=== PATIENT | female | born 1955 | race Caucasian/White ===

== ENCOUNTER 2017-05-21 12:19 | Emergency (ER) | payer OTHER ==
[~2017-05-21] VITALS: Ht 160 cm; Wt 97.6 kg
[~2017-05-21 12:19] MED LIST: LORA-741 PO; LOSA50TA6 PO; LYR/50 PO; OXYC-292 PO; OXYC-643 PO; XRL10 PO
[2017-05-21 12:28] VITALS: TEMP 36.7; Ht 160 cm; Wt 97.6 kg
--- NOTE | 2017-05-21 13:58 | EMERGENCY ROOM VISIT NOTE ---
History First contact with patient: 13:31 Chief Complaint: CONSTIPATION Stated Complaint: CONSTIPATION Nursing Triage Summary: pt c/o constipation for 2 months. pt states she has had small amount of stool today after a self enema this AM. pt states she has been taking miralax and mag citrate and lactulose per PCP order with no relief. History of Present Illness The patient is a 62 year old female who presents to the Emergency Room with complaints of a 1 month history of constipation. The patient has a past medical history of hypertension and arthritis and occasionally becomes constipated that is relieved with enemas. The patient was seen by her PCP on 05/02 and was started on a 1 week trial of Miralax and had no subsequent bowel movements. On she was then given a 2 day course of Mag Citrate and describes having only 1 watery bowel movement and afterwards no changes. On 05/16 she was started on lactulose 15ml BID and since has had no bowel movements. She denies any use of narcotics and only takes her prescribed medications. She denies any recent travel, illness, exposures, diet changes, or possible triggers. Her last colonoscopy was in November 2015 and was found to have diverticulosis. She denies any nausea, vomiting, abdominal tenderness, fever, chills, or any other acute symptoms other than constipation. She does have chronic external hemorrhoids. Review of Systems See HPI for pertinent positives and negatives. A total of ten systems were reviewed and were otherwise negative. Social History Smoking Status: Never Smoker Current/Historical Medications Scheduled Lorazepam (Ativan), 0.5 MG PO HS Losartan Potassium (Cozaar), 50 MG PO DAILY Meloxicam (Meloxicam), 15 MG PO DAILY Allergies Coded Allergies: Penicillins (Verified Allergy, Unknown, 05/21/17) Physical Exam Vital Signs Date Time Temp Pulse Resp B/P (MAP) Pulse Ox O2 Delivery O2 Flow Rate FiO2 05/21/17 16:48 74 16 130/87 98 05/21/17 14:23 64 20 134/89 96 Room Air 05/21/17 12:28 36.7 81 18 146/93 95 Room Air Physical Exam GENERAL: Awake, alert, well-appearing, in no distress HENT: Normocephalic, atraumatic. Oropharynx unremarkable. EYES: Normal conjunctiva. Sclera non-icteric. NECK: Supple. No nuchal rigidity. FROM. No JVD. RESPIRATORY: Clear to auscultation. CARDIAC: Regular rate, normal rhythm. Extremities warm and well perfused. Pulses equal. ABDOMEN: Soft, nontender, nondistended. Mild tenderness in RUQ. RECTAL: Small amount of stool in rectal vault, Hemoccult negative, external hemorrhoids, no visible anal fissures MUSCULOSKELETAL: Chest examination reveals no tenderness. LOWER EXTREMITIES: Calves are equal size bilaterally and non-tender NEURO: Normal sensorium. No sensory or motor deficits noted. SKIN: No rash or jaundice noted. Medical Decision & Procedures Laboratory Results 05/21/17 14:15 Red Blood Count 4.67, Mean Corpuscular Volume 88.9, Mean Corpuscular Hemoglobin 29.3, Mean Corpuscular Hemoglobin Concent 33.0, Mean Platelet Volume 10.8, Neutrophils (%) (Auto) 56.7, Lymphocytes (%) (Auto) 34.1, Monocytes (%) (Auto) 6.1, Eosinophils (%) (Auto) 2.3, Basophils (%) (Auto) 0.6, Neutrophils # (Auto) 3.75, Lymphocytes # (Auto) 2.25, Monocytes # (Auto) 0.40, Eosinophils # (Auto) 0.15, Basophils # (Auto) 0.04 05/21/17 14:15 Test 05/21/17 14:15 White Blood Count 6.60 K/uL (4.8-10.8) Red Blood Count 4.67 M/uL (4.2-5.4) Hemoglobin 13.7 g/dL (12.0-16.0) Hematocrit 41.5 % (37-47) Mean Corpuscular Volume 88.9 fL (80-100) Mean Corpuscular Hemoglobin 29.3 pg (25-34) Mean Corpuscular Hemoglobin Concent 33.0 g/dl (32-36) Platelet Count 255 K/uL (130-400) Mean Platelet Volume 10.8 fL (7.4-10.4) Neutrophils (%) (Auto) 56.7 % Lymphocytes (%) (Auto) 34.1 % Monocytes (%) (Auto) 6.1 % Eosinophils (%) (Auto) 2.3 % Basophils (%) (Auto) 0.6 % Neutrophils # (Auto) 3.75 K/uL (1.4-6.5) Lymphocytes # (Auto) 2.25 K/uL (1.2-3.4) Monocytes # (Auto) 0.40 K/uL (0.11-0.59) Eosinophils # (Auto) 0.15 K/uL (0-0.5) Basophils # (Auto) 0.04 K/uL (0-0.2) RDW Standard Deviation 44.1 fL (36.4-46.3) RDW Coefficient of Variation 13.6 % (11.5-14.5) Immature Granulocyte % (Auto) 0.2 % Immature Granulocyte # (Auto) 0.01 K/uL (0.00-0.02) Anion Gap 5.0 mmol/L (3-11) Est Creatinine Clear Calc Drug Dose 84.3 ml/min Estimated GFR () 95.9 Estimated GFR (Non- 82.8 BUN/Creatinine Ratio 19.9 (10-20) Calcium Level 9.6 mg/dl (8.5-10.1) Total Bilirubin 0.3 mg/dl (0.2-1) Aspartate Amino Transf (AST/SGOT) 11 U/L (15-37) Alanine Aminotransferase (ALT/SGPT) 22 U/L (12-78) Alkaline Phosphatase 82 U/L (45-117) Total Protein 6.6 gm/dl (6.4-8.2) Albumin 3.6 gm/dl (3.4-5.0) Globulin 3.0 gm/dl (2.5-4.0) Albumin/Globulin Ratio 1.2 (0.9-2) Medical Decision Patient is a 62 year old female that presents with a 1 month history of constipation Etiologies such as diverticulitis, obstruction, inflammatory bowel disease, infections, as well as others were entertained. Initial orders include CT Abdomen and Pelvis, labs including CBC and BMP - CBC and BMP wnl - CT Abdomen and Pelvis reveals no acute abnormalities - Discussed with patient continuing Lactulose and following up with GI - Appointment moved to May 30 with GI in [place] Impression Primary Impression: Constipation Departure Information Dispostion Home / Self-Care Condition GOOD Referrals Carolynn Mike PA-C (PCP) Patient Instructions My [facility] Problem Qualifiers Primary Impression: Constipation Constipation type: unspecified constipation type Qualified Codes: K59.00 - Constipation, unspecified
[2017-05-21] MEDS ORDERED: OPTIRAY 320 IV PRN (14:00)
[2017-05-21] MEDS ORDERED: MELO15TA4 PO (14:22)
[2017-05-21 14:27] LABS: BASO % 0.6 %; BASO ABS # 0.04 K/uL (0-0.2); COMPLETE YES; EOS % 2.3 %; HEMATOCRIT 41.5 % (37-47); IG% 0.2 %; LYMPH % 34.1 %; LYMPH ABS # 2.25 K/uL (1.2-3.4); MEAN CELL VOLUME 88.9 fL (80-100); MEAN CORPUSCULAR HEMOGLOBIN 29.3 pg (25-34); MEAN PLATELET VOLUME 10.8 fL (7.4-10.4); MONO % 6.1 %; NEUT % 56.7 %; PLATELET COUNT 255 K/uL (130-400); RED BLOOD COUNT 4.67 M/uL (4.2-5.4)
[2017-05-21 14:52] LABS: BUN/CREATININE RATIO 19.9 (10-20); CALCIUM 9.6 mg/dl (8.5-10.1); CREATININE 0.77 mg/dl (0.60-1.20); POTASSIUM 4.1 mmol/L (3.5-5.1)
[2017-05-21 14:55] LABS: ALB/GLOB RATIO 1.2 (0.9-2)
--- NOTE | 2017-05-21 16:45 | DIAGNOSTIC IMAGING REPORT ---
CT OF THE ABDOMEN AND PELVIS WITH CONTRAST CLINICAL HISTORY: Abdominal pain. Constipation. COMPARISON STUDY: None. TECHNIQUE: Following IV administration of 119 mL of Optiray-320, axial images of the abdomen and pelvis were obtained from the lung bases to the proximal femurs. Images were reviewed in the axial, sagittal, and coronal planes. IV contrast was administered without complication. Oral contrast was administered. CT DOSE: 1014.70 mGy.cm FINDINGS: Lung bases are clear. Heart is mildly enlarged. There is fatty infiltration of liver with suspected fatty sparing within the medial segment. The spleen, adrenal glands and pancreas are normal. There are small bilateral renal calculi that measure up to 4 mm. There are no ureteral calculi. There are bilateral parapelvic cysts. There is left colon diverticulosis without evidence for acute diverticulitis. The appendix is normal. Caliber and wall thickness of small and large bowel are normal. No suspicious osseous lesions are present. Pelvic calcifications represent phleboliths. The uterus is not visualized. The amount of stool within the colon and rectum is within normal limits. IMPRESSION: 1. No acute process within the abdomen or pelvis. 2. Colonic diverticulosis without evidence of acute diverticulitis. 3. Bilateral nephrolithiasis. No ureteral calculi. Suspected bilateral parapelvic cysts. Hydronephrosis could appear similar but is considered less likely. Electronically signed by: Crow Felix M.D. 05/21/2017 4:43 PM Dictated Date/Time: 05/21/2017 4:38 PM
[2017-05-21 16:48] VITALS: BP 130/87; PULSE 74; O2SAT 98
--- NOTE | 2017-05-21 17:01 | EMERGENCY ROOM VISIT NOTE ---
ED Visit Note First contact with patient: 13:31 Patient seen and evaluated at bedside. Discussed with patient recent history and alteration of bowel movements. Discussed plan of evaluation and care with the resident. Reviewed labs and imaging. On my bedside exam patient's abdomen soft nontender, no rebound guarding, patient well-appearing and tolerating by mouth. No fevers or chills, no other changes to suggest occult infectious etiology. Doubt bacteremia/sepsis, doubt mesenteric ischemia. No evidence of hypertensive urgency/emergency. Doubt vascular aortic pathology. CAT scan reassuring and no acute process found. Discussed with patient close follow-up with family doctor as well as GI. The resident involved major case detective's to arrange earlier GI visit. Patient verbalized understanding of all results and was agreeable with plan. Discussed symptoms to watch and return for.
== END 2017-05-21 17:13 | disposition home or self-care (01) ==
LOC: C.EDB 12:21 → C.EDA 17:13
DX: K59.00 Constipation, unspecified (principal); I10 Essential (primary) hypertension; M19.90 Unspecified osteoarthritis, unspecified site; K57.90 Diverticulosis of intestine, part unspecified, without perforation or abscess without bleeding; K64.4 Residual hemorrhoidal skin tags

== ENCOUNTER 2019-01-31 08:27 | Inpatient (IN) ==
--- NOTE | 2019-01-06 10:24 | PAT Medication Instructions ---
Medication Instructions Date of Service January 06, 2019 Home Medications lorazepam 0.5 mg PO HS losartan 50 mg PO .NOON meloxicam 15 mg PO .NOON rosuvastatin 10 mg PO .NOON ASK your surgeon for instructions meloxicam 15 mg PO .NOON DO NOT take the morning of surgery losartan 50 mg PO .NOON Take morning of surgery With a small sip of water, OTHERWISE NOTHING TO EAT OR DRINK AFTER MIDNIGHT: rosuvastatin 10 mg PO .NOON Take evening before surgery lorazepam 0.5 mg PO HS Other Notes If you have any questions please call us at [phone] or [phone] or [phone] or [phone]
--- NOTE | 2019-01-06 12:31 | Anesthesiology Consultation ---
Date of Service January 06, 2019 Assessment & Plan (1) Encounter for pre-operative examination: Chart Review Chart Review: Acceptable Risk for Surgery and Patient seen in Pre Admission Testing Teaching & Discussion Pre-Anesthesia Teaching/Discussion Notes: Instructed NPO after midnight before surgery,except medications with 15 cc of water. Medication instructions provided according to the PAT guidelines. History Surgery Operation Date: 01/31/19 08:50 Proposed Procedures p Right Total Knee Replacement - Tyree Barnard MD Height/Weight Height: 5 ft 3 in Weight: 101.2 kg Allergies Allergy/AdvReac Type Severity Reaction Status Date / Time Penicillins Allergy Mild Rash Verified 12/31/18 12:02 Medications Home Medications Medication Instructions Recorded Confirmed Last Taken lorazepam 0.5 mg PO HS 12/31/18 12/31/18 Unknown losartan 50 mg PO .NOON 12/31/18 12/31/18 Unknown meloxicam 15 mg PO .NOON 12/31/18 12/31/18 Unknown rosuvastatin 10 mg PO .NOON 12/31/18 12/31/18 Unknown Past Medical History Medical History Hyperlipidemia Hypertension Kidney stones Obesity Osteoarthritis Past Surgical History Surgical History History of total abdominal hysterectomy and bilateral salpingo-oophorectomy History of total left knee replacement Hx of dilation and curettage Hx of lithotripsy Hx of tonsillectomy Past Anesthesia History No Family Hx of Anesthesia Complications and Other "Awareness" with previous TKA. History of PONV Yes Motion Sickness Screening History of Motion Sickness: No Social History Smoking Status: Never smoker Do You Dip or Chew Tobacco: No Hx Alcohol Use: Yes Alcohol type: wine alcohol intake frequency: holidays/special occasions only Hx Substance Use: No substance use type: does not use Exercise / Class Metabolic Activity II 4-5 Yardwork/Stairs/Walk up hill Review of Systems Patient denies chest pain, shortness of breath, dyspnea on exertion, reflux, cough, wheezing, palpitations. Physical Exam Vital Signs VITALS BP 130/86 P 70 TEMP 98.0 SP02 94%RA RESP 18 PHYSICAL Full neck and c-spine range of motion. Full TMJ range of motion. TMD 2.5 finger breaths Mallampati Score 3 Dentition: upper front left chipped tooth (to be "repaired" 12/2018- surgeon made aware) Lungs: clear throughout to auscultation Cardiac: regular rate and rhythm, no murmurs noted Spine: normal Carotid arteries: negative bruit Extremities: no edema Small chin* Testing Electrocardiogram Date: 12/13/18 Findings: + NSR @ (82) Other Testing Chest CT= 12/22/18= Lungs clear. Central airways clear. No pulmonary mass. Opacity noted on prior CXR felt 2/2 to prominent right sided anterolateral projecting osteophytes off thoracic spine. Laboratory Results 01/06/19 12:41 01/06/19 12:41 Blood Type A Positive 01/06/19 12:41 Antibody Screen NEGATIVE 01/06/19 12:41 PT 10.0 Seconds (9.0-12.0) 01/06/19 12:41 INR 1.0 (0.9-1.1) 01/06/19 12:41 APTT 25.2 Seconds (21.0-31.0) 01/06/19 12:41
[2019-01-06 13:22] LABS: Basophils # (auto) 0.03 K/uL (0-0.2); Basophils % (auto) 0.5 %; Eosinophils # (auto) 0.14 K/uL (0-0.5); Eosinophils % (auto) 2.3 %; Hematocrit (blood only) 40.8 % (37-47); Hemoglobin 13.4 g/dL (12.0-16.0); Immature Granulocytes # (auto) 0.01 K/uL (0.00-0.02); Immature Granulocytes % (auto) 0.2 %; Lymphocytes # (auto) 1.99 K/uL (1.2-3.4); Lymphocytes % (auto) 32.6 %; Mean Corpuscular Hgb Conc 32.8 g/dL (32-36); Mean Corpuscular Volume 90.1 fL (80-100); Mean Platelet Volume 11.4 fL (7.4-10.4); Monocytes # (auto) 0.31 K/uL (0.11-0.59); Monocytes % (auto) 5.1 %; Neutrophils # (auto) 3.62 K/uL (1.4-6.5); Neutrophils % (auto) 59.3 %; Platelet Count 242 K/uL (130-400); RDW Coefficient of Variation 14.4 % (11.5-14.5); RDW Standard Deviation 47.5 fL (36.4-46.3); Red Blood Count 4.53 M/uL (4.2-5.4)
[2019-01-06 13:39] LABS: BUN Creatinine Ratio 23.6 (10-20); Blood Urea Nitrogen 19 mg/dl (7-18); C Reactive Protein < 0.29 mg/dl (0-0.29); Calcium 8.9 mg/dl (8.5-10.1); Carbon Dioxide 28 mmol/L (21-32); Chloride 108 mmol/L (98-107); Creatinine Clr Calc Pharmacy 80.7 ml/min; Est GFR (African American) 89.6; Est GFR (Non-African American) 77.3; Glucose 90 mg/dl (70-99); Potassium 4.3 mmol/L (3.5-5.1); Sodium 140 mmol/L (136-145)
[2019-01-06 13:43] LABS: Partial Thromboplastin Time 25.2 Seconds (21.0-31.0)
--- NOTE | 2019-01-13 21:52 | History and Physical Report ---
DATE OF ADMISSION: CHIEF COMPLAINT: Right knee pain. HISTORY OF PRESENT ILLNESS: The patient is a 63-year-old female who is well known to me from seen for some knee problems in the past. She came to me for a second opinion before her previous left knee surgery done by Dr. Ramesh in 11/2012. She had gone over and had her knee replaced and has had done okay, but continued to have some persistent pain. Over the year, she developed increased pain and discomfort in her right knee. She describes global pain. The more she walks, the more it hurts. The patient has been through extensive conservative treatment including injections as well as medicines without adequate relief. This is affecting her quality of life. She has pain with every step. She has nighttime pain. She would like to proceed with surgery on this knee. PAST MEDICAL HISTORY: Significant for, 1. Hypertension. 2. Elevated cholesterol. 3. Arthritis. 4. Neck pain. 5. Obesity with BMI of 40. 6. Kidney stones. PAST SURGICAL HISTORY: Include, 1. Tonsillectomy. 2. Tubal ligation. 3. D and C. 4. Left knee replacement done in 11/[address] Ramesh. 5. Hysterectomy. 6. Kidney stones. ALLERGIES: PENICILLIN WHICH CAUSES A RASH. No respiratory problems. CURRENT MEDICINES: Include, 1. Ativan 0.5 mg. 2. Rosuvastatin 10 mg a day. 3. Meloxicam. 4. Losartan 50 mg a day. SOCIAL HISTORY: This patient is a 63-year-old female. She lives by herself. Does not smoke. FAMILY HISTORY: Noncontributory. REVIEW OF SYSTEMS: Negative for diabetes, neurologic problems, vascular problems or bleeding disorders. No chest pain or shortness of breath. No signs of deep venous thrombosis or pulmonary embolism. PHYSICAL EXAMINATION: GENERAL: Reveals a healthy pleasant 63-year-old female. HEENT: Benign. NECK: Supple. No lymphadenopathy. LUNGS: Clear to auscultation. HEART: Regular rate and rhythm. ABDOMEN: Soft, nontender and nondistended. EXTREMITIES: Grossly neurovascularly intact except as follows. Examination of the right knee reveals the patient ambulates independently. Slight varus alignment to her knee. Moderate soft tissue envelope. Small to moderate sized knee effusion. Range of motion about 10 degrees short of full extension and 110 degrees of flexion. There is no instability. No pain with hip motion. X-RAYS: X-rays of the right knee reviewed which showed advanced right knee tricompartment DJD. She has got complete loss of her medial joint space. She does have a loose body in the suprapatellar pouch. She has osteophytes in all 3 compartments. ASSESSMENT: This patient is a 63-year-old female with advanced right knee degenerative joint disease. She has failed conservative treatment and would like to have her right knee replaced. She did have a left knee replaced back in 2012 with a suboptimal result. She knows there is no guarantee, but she would like to proceed with knee replacement on the right side. PLAN: We are going to take her to the Operating Room and do a right total knee replacement. The risks and benefits of this procedure were explained to the patient including but not limited to deep venous thrombosis, pulmonary embolism, , infection, neurological injury, vascular injury, bleeding problem, pain, limited range of motion, stiffness, failure to relieve symptoms, incomplete relief of symptoms, need for further surgery in the future, need for blood transfusion, etc. The patient understands and desires to proceed. Informed consent was obtained. We did talk to her about stopping meloxicam 10 days preoperatively. We will plan to give her Ancef as her penicillin reaction is not a true anaphylactic reaction. She is hoping to be discharged to [facility] or group home facility as she lives by herself.
[~2019-01-31 08:27] MED LIST changes: +ACETAMINOPHEN 500 MG TAB PO SCH; +BUPIVACAINE 0.5 % 5 MG/1 ML PF 10ML VIAL ONE; +BUPIVACAINE LIPOSOME/PF 266 MG, BUPIVACAINE/EPINEPHRINE 50 ML, SODIUM CHLORIDE 0.9% 30 ... INFIL SCH; +CEFAZOLIN 2000MG 2,000 MG/15 ML SYR IV SCH; +EPINEPHrine INJ 1 MG/ML AMP ONE; +FAMOTIDINE 20 MG TAB PO SCH; +GABAPENTIN 300 MG x 2 PO SCH; -LORA-741 PO; -LOSA50TA6 PO; +LR 500ML BOLUS, THEN 15ML/HR IV SCH; +LR 60ML/HR IV SCH; -LYR/50 PO; +METOCLOPRAMIDE HCL 10 MG TABLET PO SCH; -OXYC-292 PO; -OXYC-643 PO; +ROPIVACAINE 0.5% 5 MG/ML 30 ML VIAL ONE; +SCOPOLAMINE 1.5 MG TDSY TD SCH; +TRANEXAMIC ACID 1,000 MG **IV Intra-op IV SCH; -XRL10 PO
--- NOTE | 2019-01-31 08:34 | History & Physical Bridge Note ---
Date of Service January 31, 2019 History & Physical Bridge Note I have examined the patient, reviewed the History & Physical and in the interval since the performance of the History & Physical I have noted the following changes of clinical significance: no changes noted
[2019-01-31] MEDS ORDERED: fentaNYL citrate 100 MCG/2 ML VIAL ONE (09:04)
[2019-01-31] MEDS ORDERED: MIDAZOLAM HCL 1 MG/ML 2ML VIAL ONE ×2 (09:04→11:13)
[2019-01-31] MEDS ORDERED: fentaNYL citrate 100 MCG/2 ML VIAL IV PRN (10:26)
[2019-01-31] MEDS ORDERED: HYDROmorphone INJ 1 MG/ML SYRINGE IV PRN (10:26)
[2019-01-31] MEDS ORDERED: LABETALOL HCL IV 5 MG/ML 20ML IV PRN (10:26)
[2019-01-31] MEDS ORDERED: ePHEDrine sulfate 50 MG/ML AMP IV PRN (10:26)
[2019-01-31] MEDS ORDERED: ATROPINE SULFATE 0.1 MG/ML 10ML SYR IV PRN (10:26)
[2019-01-31] MEDS ORDERED: ONDANSETRON INJ 2 MG/ML 2 ML VIAL IV PRN ×2 (10:26→15:12)
[2019-01-31] MEDS ORDERED: MEPERIDINE HCL 25 MG/ML CARP IV PRN (10:26)
[2019-01-31] MEDS ORDERED: PHENYLEPHRINE 100MCG/ML 5ML SYR IV PRN (10:26)
[2019-01-31] MEDS ORDERED: SODIUM CHLORIDE 0.9% PF 50 ML VIAL ONE (10:34)
[2019-01-31] MEDS ORDERED: BUPIVACAINE LIPOSOME 1.3% 266 MG/20 ML VIAL ONE (10:34)
[2019-01-31] MEDS ORDERED: BACITRACIN INJ 50,000 UNIT VIAL ONE (10:34)
[2019-01-31] MEDS ORDERED: EPINEPHrine INJ 1 MG/ML AMP ONE (10:35)
[2019-01-31] MEDS ORDERED: BUPIVACAINE 0.25% 30 ML VIAL ONE (10:35)
[2019-01-31] MEDS ORDERED: PROPOFOL IV EMULSION 10 MG/ML 20 ML VIAL IV ONE (11:23)
[2019-01-31] MEDS ORDERED: ONDANSETRON INJ 2 MG/ML 2 ML VIAL ONE (11:23)
[2019-01-31] MEDS ORDERED: LIDOCAINE HCL 2% 2 ML VIAL/AMP(20MG/ML) INFIL ONE (11:23)
[2019-01-31] MEDS ORDERED: PHENYLEPHRINE 100MCG/ML 5ML SYR ONE (11:23)
--- NOTE | 2019-01-31 12:34 | Post Operative Brief Note ---
Immediate Post Op Note v1 Date of Surgery January 31, 2019 Pre & Post Diagnosis Operation Date: 01/31/19 10:40 Pre-Op Diagnosis: Right Knee Advanced Degenerative Joint Disease Post-Op Diagnosis: Right Knee Advanced Degenerative Joint Disease Procedure Operation Date: 01/31/19 10:40 Actual Procedures p Right Total Knee Arthroplasty(Right) - Tyree Barnard MD Surgeon Tyree Barnard MD Senior Technical Manager Chela, PAC Estimated Blood Loss 50 Findings Consistent with Post-Op Diagnosis Fluids 1500 cc Specimens Right Knee Drains Early Catheter (16 Dominican early catheter inserte by JESSICA Soares, without difficulty, clear yellow urine obtained, output to be monitored by Anesthesia.) Anesthesia Type Spinal MAC Complications none Disposition Accompanied Patient To Recovery: No Disposition: Recovery Room
--- NOTE | 2019-01-31 13:30 | XRay Report ---
XR knee RT 2V routine CLINICAL HISTORY: 64 years-old Female presenting with Surgical Post Op. TECHNIQUE: Frontal and lateral views of the right knee were obtained. COMPARISON: 01/12/2019. FINDINGS: There has been interval total right knee arthroplasty with patellar resurfacing. Expected intra-artic ular and soft tissue emphysema. Overlying skin hoa. No malalignment or periprosthetic fracture. IMPRESSION: Expected postsurgical appearance status post total right knee arthroplasty with patellar resurfacing. Electronically signed by: Emile Ko M.D. 01/31/2019 1:28 PM
--- NOTE | 2019-01-31 14:14 | Anesthesiology Progress Note ---
Date of Service January 31, 2019 Anesthesia Post Procedure Vital Signs Vital Signs: Temp Pulse Pulse Pulse Resp BP BP 01/31/19 13:55 82 15 01/31/19 13:51 80 14 99/59 L 01/31/19 13:50 81 14 01/31/19 13:45 81 13 108/64 01/31/19 13:40 84 13 109/64 01/31/19 13:35 87 15 103/65 01/31/19 13:30 85 15 107/69 01/31/19 13:25 83 19 100/62 01/31/19 13:20 83 16 101/64 01/31/19 13:15 86 16 122/64 01/31/19 13:10 88 15 100/68 01/31/19 13:05 94 H 16 110/71 01/31/19 13:00 88 18 01/31/19 12:55 88 15 115/71 01/31/19 12:52 90 14 113/66 01/31/19 12:41 36.5 C 98 H 12 111/63 01/31/19 09:02 36.5 C 76 20 149/92 H Pulse Ox 01/31/19 13:55 94 01/31/19 13:51 96 01/31/19 13:50 93 01/31/19 13:45 91 01/31/19 13:40 94 01/31/19 13:35 90 01/31/19 13:30 92 01/31/19 13:25 94 01/31/19 13:20 93 01/31/19 13:15 89 L 01/31/19 13:10 90 01/31/19 13:05 92 01/31/19 13:00 96 01/31/19 12:55 95 01/31/19 12:52 94 01/31/19 12:41 99 01/31/19 09:02 93 Notes Mental Status: alert / awake / arousable Patient Amnestic to Procedure: Yes Nausea / Vomiting: adequately controlled Pain: adequately controlled Airway Patency, RR, SpO2: stable & adequate BP & HR: stable & adequate Hydration State: stable & adequate Neuraxial Anesthesia: was administered and sensory block is resolving Anesthetic Complications: no major complications apparent and Pt Satisfied with anesthetic care
[2019-01-31] MEDS ORDERED: HYDROmorphone INJ 0.5 MG/0.5 ML SYR IV PRN (15:12)
[2019-01-31] MEDS ORDERED: METOCLOPRAMIDE HCL INJ 5 MG/ML 2 ML VIAL IV PRN (15:12)
[2019-01-31] MEDS ORDERED: ALUMINUM/MAGNESIUM SUSP 30 ML UDC PO PRN (15:12)
[2019-01-31] MEDS ORDERED: BISACODYL 10 MG SUPP PR PRN (15:12)
[2019-01-31] MEDS ORDERED: MAGNESIUM HYDROXIDE SUSP 30 ML UDC PO PRN (15:12)
[2019-01-31] MEDS ORDERED: NALOXONE HCL 0.4 MG/1 ML VIAL/CARP IV PRN (15:12)
--- NOTE | 2019-01-31 15:55 | Progress Note ---
DATE: 01/31/2019 SUBJECTIVE: A 64-year-old white female postop from a right knee replacement. She is doing well. Just got to the floor. She has got no pain yet. Does have a feeling in her legs. No chest pain or shortness of breath. Not feeling dizzy or lightheaded. OBJECTIVE: VITAL SIGNS: Temperature 36.6. Vital signs stable. GENERAL: Physical examination reveals a pleasant, middle-aged female. She is sitting up in her bed, looks pretty comfortable. LUNGS: Clear to auscultation. HEART: Regular rate and rhythm. ABDOMEN: Soft, nontender, nondistended. EXTREMITIES: Grossly neurovascularly intact except as follows: Examination of the right leg reveals the leg to be well aligned. Dressing is clean, dry and intact. She can dorsiflex and plantarflex her foot appropriately. She is neurologically intact. X-RAYS: X-rays of the right knee from recovery room reviewed. It shows cemented posterior stabilized total knee arthroplasty. Components looked to be in good position. No signs of problems. ASSESSMENT: A 64-year-old female postop from right knee replacement, doing well. Her block is still in effect. Her pain is controlled. PLAN: 1. DVT prophylaxis including thigh-high TEDs, SCDs, and aspirin twice a day. 2. PT/OT. Weight bear as tolerated. Right total knee protocol. 3. Pain control, doing well with current pain regimen. We will obviously have to add additional medicine as her spinal wears off. 4. IV antibiotics x24 hours. 5. Disposition: Plan to discharge either to home or a intermediate facility depending on how she recovers.
[2019-01-31] MEDS: SODIUM CHLORIDE 0.9% 1000ML 1,000 ML IV SCH (18:18)
[2019-01-31] MEDS: CHECK SCOPOLAMINE PATCH PLACEMENT SCH (18:19)
[2019-01-31] MEDS: LOSARTAN POTASSIUM 50 MG TAB PO SCH (18:19)
[2019-01-31] MEDS: ROSUVASTATIN CALCIUM 10 MG TAB PO SCH (18:20)
[2019-01-31] MEDS: KETOROLAC 30 MG/ML VIAL IV SCH ×2 (18:20→22:39)
[2019-01-31] MEDS: ASCORBIC ACID 500 MG TAB PO SCH (18:21)
[2019-01-31] MEDS: FERROUS GLUCONATE 324 MG TAB PO SCH (18:21)
[2019-01-31] MEDS: CEFAZOLIN 2000MG 2,000 MG/15 ML SYR IV SCH (18:22)
[2019-01-31] MEDS: ACETAMINOPHEN 500 MG TAB PO SCH (18:22)
[2019-01-31] MEDS ORDERED: TRANEXAMIC ACID 1,000 MG in 0.9 % SODIUM CHLORIDE 100 ML IV SCH (18:35)
[2019-01-31] MEDS: OXYCODONE HCL IR 5 MG TAB (IMMEDIATE RELEASE) PO PRN (19:52)
[2019-01-31] MEDS: LORazepam 0.5 MG TAB PO SCH (20:24)
[2019-01-31] MEDS: DOCUSATE SODIUM 100 MG CAP PO SCH (20:24)
[2019-01-31] MEDS: ASPIRIN 81 MG ECTAB PO SCH (20:24)
[2019-01-31] MEDS: SENNA 8.6 MG TAB PO SCH (20:24)
[2019-01-31] MEDS: TAPENTADOL HCL ER 50 MG TABCR PO SCH (20:24)
[2019-02-01] MEDS: CHECK SCOPOLAMINE PATCH PLACEMENT SCH ×4 (00:01→23:37)
[2019-02-01] MEDS: SODIUM CHLORIDE 0.9% 1000ML 1,000 ML IV SCH (02:40)
[2019-02-01] MEDS: CEFAZOLIN 2000MG 2,000 MG/15 ML SYR IV SCH (02:47)
[2019-02-01] MEDS: KETOROLAC 30 MG/ML VIAL IV SCH ×4 (02:47→22:43)
[2019-02-01] MEDS: OXYCODONE HCL IR 5 MG TAB (IMMEDIATE RELEASE) PO PRN ×2 (02:47→14:34)
--- NOTE | 2019-02-01 02:57 | Operative Report ---
DATE OF OPERATION: 01/31/2019 SURGEON: Tyree Barnard MD VISUAL MERCHANDISE MANAGER: JESSICA De Dios PREOPERATIVE DIAGNOSIS: Right knee degenerative joint disease. POSTOPERATIVE DIAGNOSIS: Right knee degenerative joint disease. PROCEDURE PERFORMED: Right cemented posterior stabilized total knee arthroplasty. COMPLICATIONS: None. ESTIMATED BLOOD LOSS: 50 mL. FLUID REPLACEMENT: 1500 mL crystalloid fluid replacement. ANESTHESIA: Spinal with adductor canal block. DRAINS: None. SPECIMENS: Right knee sent for pathology. TOURNIQUET TIME: 55 minutes at 300 mmHg. OPERATIVE INDICATIONS: The patient is a 64-year-old female who has had a long history of knee problems. She underwent an uncemented left knee replacement done elsewhere about 7 years ago and really did not do well and has been struggling with her right knee. She has tried to avoid surgery with conservative care, but become more debilitating. She has elected to proceed with total knee arthroplasty. X-rays show advanced right knee tricompartment DJD. OPERATIVE FINDINGS: Operative findings revealed advanced right knee tricompartment DJD. She has multiple loose bodies throughout the knee. She had a flexion contracture of 10 degrees. Osteophytes in all 3 compartments. OPERATIVE IMPLANTS: Operative implants consisted of: 1. Biomet Vanguard size 62.5 right posterior stabilized femoral component. 2. Biomet size 67 tibial tray. 3. A 12 mm posterior stabilized polyethylene insert. 4. A 28 x 8 all poly patella. OPERATIVE PROCEDURE: The patient was taken to the operating room, identified and placed on the operative table in supine position. All contact areas were appropriately padded. IV antibiotics were provided by anesthesia team. A spinal anesthetic and adductor canal block had been provided in the holding area. Walker catheter was placed in sterile fashion. Right thigh tourniquet was then placed. The right lower extremity was then prepped and draped in usual sterile fashion. The right leg was elevated and exsanguinated with Esmarch and tourniquet was placed at 300 mmHg. An anterior approach of the right knee was then performed through a longitudinal incision centered over the patella. Sharp dissection was carried through the subcutaneous tissues down to the level of the extensor ____. Some subperiosteal dissection was carried out medially. The fat pad was resected from beneath the patellar tendon. The lateral patellofemoral ligament was released. The patella was everted and the knee was flexed. The osteophytes were taken off the distal femur. The ACL and PCL were then released from the distal femur and the tibia subluxated anteriorly. The external tibial alignment jig was then placed in the anterior face of the tibia and adjusted 16 mm medially. Proximal tibial cut was made to remove about 2 mm of bone from the most deficient aspect of the medial tibial plateau. ____ medial and posteromedially. Tibia was sized to a size 67. Attention was then drawn to the femur. The distal femur was entered with a sharp drill. Intramedullary canal was suctioned. A right 5-degree valgus cutting guide was placed. Distal femoral cutting block was pinned in place. Distal femoral cut was made to take an additional 3 mm of bone off the distal femur. The femur was then sized to a size 62.5. The AP cutting block was pinned parallel to the epicondylar axis, which was 3 degrees of external rotation. The anterior cut, anterior chamfer, posterior cut, posterior chamfer cuts were made. Box cutting guide was placed and adjusted slightly laterally. The box cut was made. The knee was flexed. The remnants of the medial and lateral menisci were excised. The osteophytes were taken off the posterior aspect of the femur. A trial femoral component was placed. The tibial tray was then pinned in maximum external rotation and the drill and stem punch were used to create defect in proximal tibia for the tibial tray. The knee was then trialed and the 12 mm insert fit most appropriately. Attention was then drawn to the patella. The patella was cleaned of all soft tissues. Patella thickness measured 21 mm in thickness, it was cut down to 13. It was sized to a size 28 patella. Lug holes were drilled for a 28 patella. Lateral osteophyte was removed. Patella button was placed. Knee was taken through range of motion and the patella tracked nicely with no thumbs test. Attention was then drawn toward placing the permanent components. All trial components were removed. A bone plug was placed in the distal femur to limit blood loss. A double batch of Palacos G cement was mixed. A Biomet Vanguard size 62.5 right posterior stabilized femoral component, Biomet size 67 tibial tray, 12 mm posterior stabilized polyethylene insert, and a 28 x 8 all poly patella then cemented in place. Knee was brought out into full extension until cement hardened. Final cement check was then performed. The pericapsular tissues were injected with a total of 100 mL of a combination of 20 mL of Exparel, 30 mL of normal saline, 50 mL of 0.25% Marcaine with epinephrine. The patient did receive 1 gram of tranexamic acid. The tourniquet was then let down for a tourniquet time of 55 minutes. Hemostasis was assured using electrocautery. The extensor mechanism was then closed with a combination of #1 PDS suture and #1 Vicryl suture in a [id number] fashion. Extensor mechanism was checked and found to be intact. Subcutaneous tissue was then closed with 2-0 Dexon suture in a buried interrupted fashion. Skin was closed with skin hoa. Leg was then cleaned and dried and a sterile dressing of Xeroform, 4 x 4s, sterile cast padding and an Jerry bandage were applied. The patient then transferred to the recovery room in stable condition. The patient tolerated the procedure well with no complication. All needle and sponge counts were correct at the end of the operation. I attest to the content of the Intraoperative Record and any orders documented therein. Any exception s are noted below.
[2019-02-01 06:19] LABS: Hematocrit (blood only) 33.2 % (37-47); Hemoglobin 10.5 g/dL (12.0-16.0); Mean Corpuscular Hgb Conc 31.6 g/dL (32-36); Mean Corpuscular Volume 91.2 fL (80-100); Mean Platelet Volume 11.4 fL (7.4-10.4); Platelet Count 184 K/uL (130-400); RDW Coefficient of Variation 14.5 % (11.5-14.5); RDW Standard Deviation 48.3 fL (36.4-46.3); Red Blood Count 3.64 M/uL (4.2-5.4)
[2019-02-01] MEDS: ACETAMINOPHEN 500 MG TAB PO SCH ×3 (06:36→22:43)
[2019-02-01 06:52] LABS: BUN Creatinine Ratio 18.3 (10-20); Creatinine Clr Calc Pharmacy 75.3 ml/min; Est GFR (African American) 83.9; Est GFR (Non-African American) 72.4
--- NOTE | 2019-02-01 08:19 | Progress Note ---
DATE: 02/01/2019 SUBJECTIVE: A 64-year-old female postop day 1 from right knee replacement. She is doing pretty well. Pain is controlled. She says it has been much better than her last surgery. No chest pain or shortness of breath. Not feeling dizzy or lightheaded. OBJECTIVE: VITAL SIGNS: Temperature 36.8. Vital signs stable. PHYSICAL EXAMINATION: GENERAL: Reveals a pleasant, middle-aged female. She is sitting up in bed and looks pretty comfortable. EXTREMITIES: Examination of the right leg reveals the leg to be well aligned. Dressing is clean, dry and intact. She can dorsiflex and plantarflex her foot appropriately. She has got brisk refill and good distal pulse. LABORATORY DATA: Hemoglobin 10.5, hematocrit 33.2. Electrolytes are stable. ASSESSMENT: A 64-year-old female postoperative day 1 from right knee replacement, doing pretty well. Pain is controlled. She is neurologically intact. PLAN: 1. DVT prophylaxis including thigh-high TEDs, SCDs, and aspirin twice a day. 2. PT/OT. Weight bear as tolerated. Right total knee protocol. 3. Pain control, doing well with current pain regimen. 4. Disposition: She is hoping to be discharged to rehab or jail facility based on insurance coverage. We will have social worker assistant working on this.
[2019-02-01] MEDS: MULTIVITAMIN TAB PO SCH (09:37)
[2019-02-01] MEDS: DOCUSATE SODIUM 100 MG CAP PO SCH ×2 (09:37→20:33)
[2019-02-01] MEDS: TAPENTADOL HCL ER 50 MG TABCR PO SCH ×2 (09:37→20:33)
[2019-02-01] MEDS: ASPIRIN 81 MG ECTAB PO SCH ×2 (09:37→20:34)
[2019-02-01] MEDS: ASCORBIC ACID 500 MG TAB PO SCH ×2 (09:38→18:12)
[2019-02-01] MEDS: FERROUS GLUCONATE 324 MG TAB PO SCH ×2 (09:38→18:12)
--- NOTE | 2019-02-01 10:59 | Anesthesiology Progress Note ---
Date of Service February 01, 2019 Anesthesia Post Procedure Vital Signs Vital Signs: Temp Pulse Pulse Pulse Resp BP BP 02/01/19 07:10 36.7 C 70 16 111/70 02/01/19 03:10 36.8 C 63 16 105/70 01/31/19 23:05 36.8 C 63 16 99/67 L 01/31/19 19:37 36.7 C 65 17 111/76 01/31/19 18:10 36.7 C 63 18 106/71 01/31/19 16:50 36.6 C 62 17 101/69 01/31/19 15:56 65 17 115/78 01/31/19 15:22 36.6 C 64 17 110/74 01/31/19 14:55 37.0 C 81 18 113/71 01/31/19 14:40 79 14 01/31/19 14:35 65 15 93/68 L 01/31/19 14:30 81 13 90/78 L 01/31/19 14:25 78 16 101/64 01/31/19 14:20 66 12 106/68 01/31/19 14:15 81 13 98/67 L 01/31/19 14:14 36.8 C 79 16 107/63 01/31/19 14:10 81 17 107/63 01/31/19 14:05 82 14 105/63 01/31/19 14:00 85 16 105/71 01/31/19 13:55 82 15 01/31/19 13:51 80 14 99/59 L 01/31/19 13:50 81 14 01/31/19 13:45 81 13 108/64 01/31/19 13:40 84 13 109/64 01/31/19 13:35 87 15 103/65 01/31/19 13:30 85 15 107/69 01/31/19 13:25 83 19 100/62 01/31/19 13:20 83 16 101/64 01/31/19 13:15 86 16 122/64 01/31/19 13:10 88 15 100/68 01/31/19 13:05 94 H 16 110/71 01/31/19 13:00 88 18 01/31/19 12:55 88 15 115/71 01/31/19 12:52 90 14 113/66 01/31/19 12:41 36.5 C 98 H 12 111/63 Pulse Ox 02/01/19 07:10 95 02/01/19 03:10 97 01/31/19 23:05 95 01/31/19 19:37 94 01/31/19 18:10 92 01/31/19 16:50 96 01/31/19 15:56 96 01/31/19 15:22 94 01/31/19 14:55 95 01/31/19 14:40 94 01/31/19 14:35 97 01/31/19 14:30 97 01/31/19 14:25 94 01/31/19 14:20 95 01/31/19 14:15 93 01/31/19 14:14 95 01/31/19 14:10 92 01/31/19 14:05 94 01/31/19 14:00 95 01/31/19 13:55 94 01/31/19 13:51 96 01/31/19 13:50 93 01/31/19 13:45 91 01/31/19 13:40 94 01/31/19 13:35 90 01/31/19 13:30 92 01/31/19 13:25 94 01/31/19 13:20 93 01/31/19 13:15 89 L 01/31/19 13:10 90 01/31/19 13:05 92 01/31/19 13:00 96 01/31/19 12:55 95 01/31/19 12:52 94 01/31/19 12:41 99 Notes Mental Status: alert / awake / arousable Nausea / Vomiting: adequately controlled Pain: adequately controlled Airway Patency, RR, SpO2: stable & adequate BP & HR: stable & adequate Hydration State: stable & adequate Neuraxial Anesthesia: was administered and sensory block resolved Anesthetic Complications: no major complications apparent and Pt Satisfied with anesthetic care
[2019-02-01] MEDS: LOSARTAN POTASSIUM 50 MG TAB PO SCH (11:48)
[2019-02-01] MEDS: ROSUVASTATIN CALCIUM 10 MG TAB PO SCH (11:48)
[2019-02-01] MEDS: LORazepam 0.5 MG TAB PO SCH (20:33)
[2019-02-01] MEDS: SENNA 8.6 MG TAB PO SCH (20:34)
[2019-02-02] MEDS: KETOROLAC 30 MG/ML VIAL IV SCH ×2 (03:27→09:19)
[2019-02-02] MEDS: ACETAMINOPHEN 500 MG TAB PO SCH (06:37)
[2019-02-02 07:44] VITALS: BP 125/82; PULSE 70; TEMP 98.6; O2SAT 95
--- NOTE | 2019-02-02 08:36 | Progress Note ---
DATE: 02/02/2019 SUBJECTIVE: A 64-year-old white female postop day 2 from right knee replacement. She is doing well. Pain is controlled. Therapy went well. She is doing better than what she expected. OBJECTIVE: VITAL SIGNS: Temperature 36.8. Vital signs stable. GENERAL: Physical examination reveals a pleasant elderly female. She is sitting up in bed, looks pretty comfortable. EXTREMITIES: Examination of the right leg reveals the dressing to be clean, dry and intact. Calf is soft and supple. She can dorsiflex and plantarflex her foot appropriately. She is neurologically intact. ASSESSMENT: A 64-year-old white female postop day 2 from right knee replacement, doing pretty well. Pain is controlled. She is doing better than what she expected. She decided to go daughter's house, I believe and do home health as opposed to rehabilitation. PLAN: 1. DVT prophylaxis including TEDs, SCDs, and aspirin twice a day. 2. PT/OT. Weight bear as tolerated. Right total knee protocol. 3. Pain control, doing well with current pain regimen. 4. Disposition: She is planning to be discharged to home with some home health. I think she is going to be staying with her daughter. I will see her back 2 weeks postop.
[2019-02-02] MEDS: FERROUS GLUCONATE 324 MG TAB PO SCH (09:18)
[2019-02-02] MEDS: ASPIRIN 81 MG ECTAB PO SCH (09:18)
[2019-02-02] MEDS: CHECK SCOPOLAMINE PATCH PLACEMENT SCH (09:18)
[2019-02-02] MEDS: DOCUSATE SODIUM 100 MG CAP PO SCH (09:19)
[2019-02-02] MEDS: MULTIVITAMIN TAB PO SCH (09:19)
[2019-02-02] MEDS: ASCORBIC ACID 500 MG TAB PO SCH (09:19)
[2019-02-02] MEDS: TAPENTADOL HCL ER 50 MG TABCR PO SCH (09:19)
[2019-02-02] MEDS: LOSARTAN POTASSIUM 50 MG TAB PO SCH (11:50)
[2019-02-02] MEDS: ROSUVASTATIN CALCIUM 10 MG TAB PO SCH (11:50)
--- NOTE | 2019-02-03 12:39 | Discharge Summary ---
Date of Service February 05, 2019 Discharge Data Consultations 01/31/19 15:12 Consult Case Management - Discharge Planning Routine Procedures Performed Operation Date: 01/31/19 10:40 Actual Procedures p Right Total Knee Arthroplasty(Right) - Tyree Barnard MD
--- NOTE | 2019-02-04 16:02 | Discharge Summary ---
ADMITTING PHYSICIAN AND SURGEON: Dr. Tyree Barnard. ADMITTING DIAGNOSIS: Right knee degenerative joint disease. SURGERY PERFORMED: Right total knee arthroplasty. SECONDARY DIAGNOSES: Hypertension, elevated cholesterol, arthritis, neck pain, obesity, kidney stones. CONSULTS: None obtained. HISTORY AND PHYSICAL EXAMINATION: Well documented in the patient's chart. HOSPITAL COURSE: The patient was admitted on 01/31/2019 underwent total knee arthroplasty, tolerated the procedure well. There were no complications. She was transferred to the PACU postoperatively and later to the orthopedic for further care. She was given Ancef for antibiotic prophylaxis, TARI stockings, SCDs and aspirin for DVT prophylaxis. Hemoglobin, hematocrit and vital signs were monitored during her hospital stay. She developed some postoperative anemia, hemoglobin 10.5 did not require any blood transfusions. There were no complications. By postoperative day 2, she was tolerating a regular diet, pain was controlled with oral pain medicine. She was participating in physical therapy. On postop day 2, she was discharged home, set up with home health services. She was given printed discharge instructions including new prescriptions for extra strength Tylenol, aspirin, iron supplement and oxycodone. Continue her home medicines. Continue physical therapy, weightbearing as tolerated, TARI stockings. Follow up approximately 2 weeks postoperatively or sooner if there are any problems or concerns.
--- NOTE | 2019-02-10 07:08 | Coding Query ---
CODING QUERY ANEMIA To promote full compliance with coding requirements relating to patient care, physician participation is requested in all cases of director of elementary education uncertainty. Please assist us with the question(s) below: Coding Question(s): The record reflects the following clinical documentation: Postoperative anemia is documented in the discharge summary. There are several coding choices for this diagnosis and more specificity is required for code selection. Please indicate the type of anemia this patient had: ( x) Acute blood loss anemia ( ) Acute postoperative anemia due to dilutional fluids ( ) Chronic blood loss anemia (x ) Iron deficient anemia due to blood loss ( ) Iron deficiency anemia (x ) Anemia, unspecified or other ( ) Other: (please specify) ( ) Unable to determine Thank you for your time, VALENTINO Ayala, [facility]
== END 2019-02-02 12:27 | disposition home health service (06) | DRG 470 ==
LOC: ASU 08:27 → 3E 12:38